=== PATIENT | male | born 1990 | race Two or more races ===

== ENCOUNTER 2017-06-10 14:48 | Inpatient (IN) | payer MEDICAID ==
[~2017-06-10] VITALS: Ht 160 cm; Wt 59.0 kg
[2017-06-10 18:50] LABS: BASOPHIL % 0.3 % (0-2); PLATELET COUNT 249 x10^3mcL (130-400); RED CELL DISTRIBUTION WIDTH 12.9 % (11.5-14.5)
[2017-06-10 19:00] LABS: CALCIUM 8.4 mg/dL (8.5-10.1); CARBON DIOXIDE 29.5 mmol/L (21-32); CHLORIDE SERUM 103 mmol/L (98-107); CREATININE SERUM 1.1 mg/dL (0.7-1.3); GFR1 > 60 mL/min; GLUCOSE SERUM 90 mg/dL (74-106); POTASSIUM SERUM 3.8 mmol/L (3.5-5.1); SODIUM SERUM 138 mmol/L (136-145)
[2017-06-10 19:02] LABS: UA SPECIFIC GRAVITY <=1.005 (1.005-1.035); microscopic required? YES; urine erythrocyte NEGATIVE (NEGATIVE)
[2017-06-10 19:04] LABS: ALBUMIN 3.6 g/dL (3.4-5.0); ALKALINE PHOSPHATASE 76 U/L (46-116); ALT/SGPT 24 U/L (16-63); AMYLASE 58 U/L (25-115); AST/SGOT 20 U/L (15-37); BILIRUBIN TOTAL 0.67 mg/dL (0.20-1.00); LIPASE 128 IU/L (73-393); TOTAL PROTEIN, SERUM 7.8 g/dL (6.4-8.2)
[2017-06-10 20:07] LABS: AMPHETAMINE QUAL UR NONE DETECTED (NEG <=1000)
[2017-06-10 20:29] VITALS: BP 114/72
[2017-06-10 20:43] LABS: T3 TOTAL 1.18 ng/mL
[2017-06-10 20:46] LABS: PHOSPHOROUS 2.7 mg/dL (2.5-4.9)
[2017-06-10 20:48] LABS: CHOLESTEROL/HDL RATIO 2.6
[2017-06-10 23:01] LABS: FREE T4 1.15 ng/dL (0.76-1.46); FREE THYROXINE INDEX 3.3 ug/dL (1.4-4.5); T4(THYROXINE) 9.5 ug/dL (4.7-13.3)
[2017-06-11 05:48] VITALS: BP 116/59
[2017-06-11 08:44] VITALS: BP 124/72
[2017-06-11 09:24] LABS: BASOPHIL % 0.1 % (0-2); PLATELET COUNT 264 x10^3mcL (130-400); RED CELL DISTRIBUTION WIDTH 12.4 % (11.5-14.5)
[2017-06-11 09:41] LABS: CALCIUM 9.4 mg/dL (8.5-10.1); CARBON DIOXIDE 26.8 mmol/L (21-32); CHLORIDE SERUM 100 mmol/L (98-107); CREATININE SERUM 1.1 mg/dL (0.7-1.3); GFR1 > 60 mL/min; GLUCOSE SERUM 188 mg/dL (74-106); MAGNESIUM 1.9 mg/dL (1.8-2.4); PHOSPHOROUS 3.5 mg/dL (2.5-4.9); POTASSIUM SERUM 4.1 mmol/L (3.5-5.1); SODIUM SERUM 138 mmol/L (136-145)
[2017-06-11 17:43] VITALS: BP 105/62
[2017-06-11 21:31] VITALS: BP 106/77
[2017-06-12 05:46] VITALS: BP 106/77
[2017-06-12 05:51] VITALS: BP 113/83
[2017-06-12 08:51] VITALS: BP 116/80
[2017-06-12] MEDS ORDERED: APAP/HYDROCODON1 T13 PO (10:18)
[2017-06-12] MEDS ORDERED: LEVAQUIN750 MG PO (10:19)
[2017-06-12 10:41] LABS: BASOPHIL % 0.5 % (0-2); PLATELET COUNT 260 x10^3mcL (130-400); RED CELL DISTRIBUTION WIDTH 12.4 % (11.5-14.5)
[2017-06-12 12:20] VITALS: BP 111/76
[2017-06-12 13:20] VITALS: BP 111/76
[2017-06-12] MEDS ORDERED: REGLAN10 M1 PO (15:10)
[2017-06-12] MEDS ORDERED: MYL80 CH (15:11)
[2017-06-12] MEDS ORDERED: LAC PO (15:31)
== END 2017-06-12 16:00 | disposition home or self-care (01) | DRG 225 ==
LOC: ED 14:48 → DU 18:29 → MU 18:29 → DU 20:20 → MU 06-11 09:25
PROVIDERS: Emergency Medicine; Family Medicine; Surgery; ADMIT Family Medicine
PROC: 0DTJ4ZZ Resection of Appendix, Percutaneous Endoscopic Approach (ICD-10-PCS; principal; 2017-06-10 22:00)
DX: K35.80 Unspecified acute appendicitis (principal); N39.0 Urinary tract infection, site not specified; R73.03 Prediabetes; Z68.23 Body mass index [BMI] 23.0-23.9, adult
CPT/HCPCS: 82962; 83880; 84439; 94150; J0290; J0295; J0330; J1170; J1644; J1956; J2250; J2270; J2405; J2704; J2710; J3010; J3490; J7030; J7120; J8597; Q0092; Q9967